=== PATIENT | female | born 1995 | race African-American/Black ===

== ENCOUNTER 2019-06-12 09:15 | Inpatient (IN) | payer BC ==
[2019-06-12] MEDS ORDERED: AMPICILLIN SODIUM 2 GM VIAL ONE (10:12)
[2019-06-12] MEDS ORDERED: AMPICILLIN - 2 GM in SODIUM CHLORIDE 100 ML IVPB ONE (10:30)
[2019-06-12 10:44] VITALS: BMI 32.2
[2019-06-12] MEDS ORDERED: ELECTROLYTE-148 SOLN 1,000 ML IV SCH (10:45)
[2019-06-12 11:27] LABS: BASO % 0.5 % (0-2.0); EOS % 0.8 % (0-4.5); HEMATOCRIT 34.5 % (32.4-45.2); HEMOGLOBIN 11.9 GM/dL (10.7-15.3); LYMPH % 22.1 % (8-40); MCH 33.2 pg (25.7-33.7); MCHC 34.6 g/dl (32.0-36.0); MONO % 6.1 % (3.8-10.2); NEUT % 70.5 % (42.8-82.8); PLATELET COUNT 170 K/MM3 (134-434); RBC 3.59 M/mm3 (3.60-5.2); RDW 13.9 % (11.6-15.6); WHITE BLOOD COUNT 6.3 K/mm3 (4.0-10.0)
[2019-06-12 11:38] LABS: INR 0.9 (0.83-1.09); PROTHROMBIN TIME (PATIENT) 10.6 SEC (9.7-13.0)
[2019-06-12 11:41] LABS: ACTIVATED PTT 26.6 SECONDS (25.2-36.5); BLOOD UREA NITROGEN 7.3 mg/dL (7-18); CALCIUM 9.2 mg/dL (8.5-10.1); CREATININE 0.6 mg/dL (0.55-1.3); POTASSIUM 4.2 mmol/L (3.5-5.1)
[2019-06-12] MEDS ORDERED: BUTORPHANOL TARTRATE 1 MG/ML VIAL IVPB ONE (13:04)
[2019-06-12] MEDS ORDERED: PROMETHAZINE HCL 25 MG/1 ML VIAL IVPB ONE (13:04)
[2019-06-12] MEDS ORDERED: DINOPROSTONE 10 MG VAGINAL SUPPOSITORY VG ONE (13:08)
--- NOTE | 2019-06-12 13:13 | HP ---
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: Alzheimer's, CVA, Dementia, Migraine, Multiple Sclerosis, Peripheral Neuropathy, Parkinson's, Seizure, Syncope, TIA, Vertigo, Other Cardiovascular: No: AFIB, Aneurysm, Aortic Insufficiency, Aortic Stenosis, CAD, CHF, Deep Vein Thrombosis, HTN, Hyperlipdemia, [place], Mitral Insufficiency, Mitral Stenosis, Murmur, Pulmonary Hypertension, Other Pulmonary: No: Asthma, Bronchitis, Cancer, COPD, O2 Dependent, Pneumonia, Previously Intubated, Pulmonary Embolus, Pulmonary Fibrosis, Sleep Apnea, Other Gastrointestinal: No: Ascites, Cancer, Constipation, Crohn's Disease, Diverticulitis, Diverticulosis, Esophageal Varices, Gastritis, GERD, GI Bleed, Hemorrhoids, Hiatal Hernia, Inflamatory Bowel Disease, Irritable Bowel Disease, Pancreatitis, Peptic Ulcer Disease, Ulcerative Colitis, Other Hepatobiliary: No: Cirrhosis, Cholelithiasis, Cholecystitis, Choledocholithiasis , Hepatitis A, Hepatitis B, Hepatitis C, Other Renal/: No: Renal Failure, Renal Inusuff, BPH, Cancer, Hematuria, Hemodialysis , Neurogenic Bladder, Renal Calculi, UTI, Other Reproductive: No: Ectopic , Endometriosis, Fibroids, PID, Polycystic Ovary Syndrome, Postmenopausal, Other ...: 1 ...Para: 0 ...Term: 0 ...: 0 ...Spon : 0 ...Induced : 0 ...Multiple Gestation: 0 ...LMP: 09/09/18 ... Weeks Gestation by Dates: 39.3 ...EDC by Dates: 06/16/19 ...EDC by Sono: 06/16/19 Heme/Onc: No: Anemia, B12 Deficiency, Bleeding Disorder, Cancer, Current Chemotherapy, Current Radiation Therapy, Hemochromatosis, Hypercoaguable State, Myeloproliferative Synd, Sickle Cell Disease, Sickle Cell Trait, Thrombocytopenia, Other Infectious Disease: No: AIDS, C-Diff, Herpes Zoster, HIV, MRSA, STD's, Tuberculosis, VREF, Other Psych: No: Addictions, Anxiety, Bipolar, Depression, Panic, Psychosis, Schizophrenia, Other Musculoskeletal: No: Bursitis, Chronic low back pain, Hemiparesis, Hemiplegia, Osteoarthritis, Paraplegia, Other Rheumatology: No: Fibromyalgia, Gout, Lupus, Rheumatoid Arthritis, Sarcoidosis, Vasculitis, Other ENT: No: Allergic Rhinitis, Sinusitis, Other Endocrine: No: Craig's Disease, [place]'s Disease, Diabetes Insipidus, Diabetes Mellitus, Hyperparathyroidism, Hyperthyroidism, Hypothyroidism, Osteopenia, SIADH, Other Dermatology: No: Basal Cell, Cellulitis, Eczema, Melanoma, Psoriasis, Squamous Cell, Other - Past Surgical History Past Surgical History: No: None, AAA Repair, AICD, Amputation, Appendectomy, Arthrosocopy, AV Fistula/Graft, Bariatric Surgery, Breast Biopsy, Bypass, CABG, Carotid Endarterectomy, Cataract Removal, Cholecystectomy, Colectomy, Colonoscopy, Colostomy, Craniotomy, , Cystectomy, Hernia Repair, Hysterectomy, Ileal Conduit, Ileosotomy, Joint Replacement, Kidney Transplant, Laminectomy, Liver Transplant, Mastectomy, Nephrectomy, Oopherectomy, Orchiectomy, Permanent Pacemaker, Prostatectomy, Splenectomy, Stent, Thoracotomy , TURP, Tonsillectomy, Tubal Ligation, Upper Endoscopy, Valve Replacement, Vasectomy, Vein Stripping/Ligation Hx Myomectomy: No Hx Transabdominal Cerclage: No - Advance Directives Advance Directives: Yes: Living Will - Smoking History Smoking history: Never smoked Have you smoked in the past 12 months: No - Alcohol/Substance Use Hx Alcohol Use: No History of Substance Use: reports: None - Social History Usual Living Arrangement: Yes: With Spouse Do you think of yourself as: Declined to answer ADL: Independent History of Recent Travel: No Home Medications - Allergies Allergies/Adverse Reactions: Allergies Allergy/AdvReac Type Severity Reaction Status Date / Time No Known Allergies Allergy Verified 06/12/19 09:49 - Home Medications Home Medications: Ambulatory Orders Pnv No.95/Ferrous Fum/Folic AC [ Vitamin Tablet] 1 each PO DAILY Family Medical History Family History: Denies Review of Systems - Review of Systems Constitutional: reports: No Symptoms Eyes: reports: No Symptoms HENT: reports: No Symptoms Neck: reports: No Symptoms Cardiovascular: reports: No Symptoms Respiratory: reports: No Symptoms Gastrointestinal: reports: No Symptoms Genitourinary: reports: No Symptoms Breasts: reports: No Symptoms Reported Musculoskeletal: reports: No Symptoms Integumentary: reports: No Symptoms Neurological: reports: No Symptoms Endocrine: reports: No Symptoms Hematology/Lymphatic: reports: No Symptoms Psychiatric: reports: No Symptoms Physical Exam - Maternity Vital Signs: Vital Signs Temperature 97.9 F 06/12/19 13:00 Pulse Rate 82 06/12/19 13:00 Respiratory Rate 18 06/12/19 13:00 Blood Pressure 120/62 06/12/19 13:00 O2 Sat by Pulse Oximetry (%) Constitutional: Yes: Well Nourished, No Distress, Calm Eyes: Yes: WNL, Conjunctiva Clear, EOM Intact HENT: Yes: WNL, Atraumatic, Normocephalic Neck: Yes: WNL, Supple, Trachea Midline Cardiovascular: Yes: WNL, Regular Rate and Rhythm Lungs: Clear to auscultation Breast(s): Yes: WNL - Abdominal Exam/OB Number of Fetuses: Single Presentation: Vertex Contractions: Yes Regularity: Irregular Intensity: Mild Monitor Mode: External Heart Rate Location: [facility] Category: I Accelerations: Uniform Decelerations: None - Vaginal Exam/OB Vaginal Bleediing: No Speculum Exam: No Dilatation (cm): 2 Effacement (%): 70 Amniotic Membrane Status: Ruptured Amniotic Fluid: Yes: Clear Presentation: Vertex/Position Station: -2 - Physical Exam Musculoskeletal: Yes: WNL Extremities: Yes: WNL Edema: Yes Edema: LUE: 1+, RUE: 1+, LLE: 1+, RLE: 1+ Integumentary: Yes: WNL Deep Tendon Reflex Grade: Normal +2 ...Motor Strength: WNL Psychiatric: Yes: WNL, Alert, Oriented - Labs Lab Results: CBC, BMP 06/12/19 10:57 06/12/19 10:57 Assessment/Plan for cervidil then pitocin, ampicillin given
[2019-06-12] MEDS ORDERED: FENTANYL/BUPIVACAINE/NS/PF - PCEA - 50 ML DISP.SYRIN EP ONE ×2 (13:41→13:44)
[2019-06-12] MEDS ORDERED: LIDO 2%/EPI 1:200000 PRESRVFRE (20 ML SDVIAL) ONE ×2 (13:45→16:14)
[2019-06-12] MEDS ORDERED: NALOXONE HCL 0.4 MG/ML VIAL IVPUSH PRN (14:09)
[2019-06-12] MEDS ORDERED: AMPICILLIN SODIUM 1 GM VIAL ONE (14:12)
[2019-06-12] MEDS: AMPICILLIN - 1 GM in SODIUM CHLORIDE 100 ML IVPB SCH ×2 (14:15→19:36)
[2019-06-12] MEDS ORDERED: FENTANYL/BUPIVACAINE/NS/PF - PCEA - 50 ML DISP.SYRIN EP SCH (14:15)
[2019-06-12] MEDS ORDERED: morphine SULFATE/PF 0.5 MG/ML (2cc Syringe - QUVA) ONE (15:40)
[2019-06-12] MEDS ORDERED: LIDOCAINE HCL/PF 2% SDV 5ML VIAL ONE (16:08)
[2019-06-12] MEDS ORDERED: PROPOFOL 20 ML ONE (16:21)
[2019-06-12] MEDS ORDERED: SUCCINYLCHOLINE CHLORIDE 200 MG/10 ML SYRINGE ONE (16:23)
[2019-06-12] MEDS ORDERED: OXYTOCIN 10 UNITS/ML VIAL ONE ×2 (16:32→17:05)
[2019-06-12] MEDS ORDERED: MIDAZOLAM HCL 2 MG/2 ML SINGLE DOSE VIAL ONE (17:14)
[2019-06-12] MEDS ORDERED: OXYTOCIN 20 UNITS in 0.9% NS 20 UNIT/1,000 ML INFUS.BAG IV ONE (17:35)
--- NOTE | 2019-06-12 17:42 | CONSULT ---
Consult Consult Specialty:: Pulm/CCM Reason for Consultation:: post op resp failure - History of Present Illness History of Present Illness: 24 yo woman with no other past medical history who underwent c/b high spinal w/ resp compromise requiring general anesthesia. The was uncomplicated. Post op pt w/ residual resp weakness and unable to be weaned from mechanical ventilation and transferred to ICU for recoverey and vent weaning. 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: Alzheimer's, CVA, Dementia, Migraine, Multiple Sclerosis, Peripheral Neuropathy, Parkinson's, Seizure, Syncope, TIA, Vertigo, Other Cardio/Vascular: No: AFIB, Aneurysm, Aortic Insufficiency, Aortic Stenosis, CAD , CHF, Deep Vein Thrombosis, HTN, Hyperlipdemia, [place], Mitral Insufficiency, Mitral Stenosis, Murmur, Pulmonary Hypertension, Other Pulmonary: No: Asthma, Bronchitis, Cancer, COPD, O2 Dependent, Pneumonia, Previously Intubated, Pulmonary Embolus, Pulmonary Fibrosis, Sleep Apnea, Other Gastrointestinal: No: Ascites, Cancer, Constipation, Crohn's Disease, Diverticulitis, Diverticulosis, Esophageal Varices, Gastritis, GERD, GI Bleed, Hemorrhoids, Hiatal Hernia, Inflamatory Bowel Disease, Irritable Bowel Disease, Pancreatitis, Peptic Ulcer Disease, Ulcerative Colitis, Other Hepatobiliary: No: Cirrhosis, Cholelithiasis, Cholecystitis, Choledocholithiasis , Hepatitis A, Hepatitis B, Hepatitis C, Other Renal/: No: Renal Failure, Renal Inusuff, BPH, Cancer, Hematuria, Hemodialysis , Neurogenic Bladder, Renal Calculi, UTI, Other Infectious Disease: No: AIDS, C-Diff, Herpes Zoster, HIV, MRSA, STD's, Tuberculosis, VREF, Other Psych: No: Addictions, Anxiety, Bipolar, Depression, Panic, Psychosis, Schizophrenia, Other Musculoskeletal: No: Bursitis, Chronic low back pain, Hemiparesis, Hemiplegia, Osteoarthritis, Paraplegia, Other Rheumatology: No: Fibromyalgia, Gout, Lupus, Rheumatoid Arthritis, Sarcoidosis, Vasculitis, Other ENT: No: Allergic Rhinitis, Sinusitis, Other Endocrine: No: [place]'s Disease, [place]'s Disease, Diabetes Insipidus, Diabetes Mellitus, Hyperparathyroidism, Hyperthyroidism, Hypothyroidism, Osteopenia, SIADH, Other Dermatology: No: Basal Cell, Cellulitis, Eczema, Melanoma, Psoriasis, Squamous Cell, Other - Past Surgical History Past Surgical History: No: None, AAA Repair, AICD, Amputation, Appendectomy, Arthrosocopy, AV Fistula/Graft, Bariatric Surgery, Breast Biopsy, Bypass, CABG, Carotid Endarterectomy, Cataract Removal, Cholecystectomy, Colectomy, Colonoscopy, Colostomy, Craniotomy, , Cystectomy, Hernia Repair, Hysterectomy, Ileal Conduit, Ileosotomy, Joint Replacement, Kidney Transplant, Laminectomy, Liver Transplant, Mastectomy, Nephrectomy, Oopherectomy, Orchiectomy, Permanent Pacemaker, Prostatectomy, Splenectomy, Stent, Thoracotomy , TURP, Tonsillectomy, Tubal Ligation, Upper Endoscopy, Valve Replacement, Vasectomy, Vein Stripping/Ligation - Alcohol/Substance Use Hx Alcohol Use: No History of Substance Use: reports: None - Smoking History Smoking history: Never smoked Have you smoked in the past 12 months: No - Social History ADL: Independent History of Recent Travel: No Home Medications - Allergies Allergies/Adverse Reactions: Allergies Allergy/AdvReac Type Severity Reaction Status Date / Time No Known Allergies Allergy Verified 06/12/19 09:49 - Home Medications Home Medications: Ambulatory Orders Pnv No.95/Ferrous Fum/Folic AC [ Vitamin Tablet] 1 each PO DAILY Family Medical History Family History: Unable to Obtain Review of Systems Unable to obtain ROS, reason: intubated Physical Exam Vital Signs: Vital Signs Temperature 97.9 F 06/12/19 14:00 Pulse Rate 98 H 06/12/19 15:00 Respiratory Rate 20 06/12/19 15:00 Blood Pressure 105/56 L 06/12/19 15:00 O2 Sat by Pulse Oximetry (%) 100 06/12/19 15:00 Constitutional: Yes: Well Nourished, No Distress Eyes: Yes: PERRL HENT: Yes: Normocephalic Neck: Yes: Trachea Midline Cardiovascular: Yes: Regular Rate and Rhythm, S1, S2 Respiratory: Yes: CTA Bilaterally, Mechanically Ventilated Gastrointestinal: Yes: Normal Bowel Sounds Renal/: Yes: Other ( c/d/i) Extremities: Yes: WNL Edema: No Neurological: Yes: Other (sedated RASS -3) Labs: CBC, BMP 06/12/19 10:57 06/12/19 10:57 Problem List - Problems (1) Respiratory failure requiring intubation Code(s): J96.90 - RESPIRATORY FAILURE, UNSP, UNSP W HYPOXIA OR HYPERCAPNIA Assessment/Plan 24 yo woman w/ no PMH s/p c/b high spinal w/ post op respiratory failure being transferred to ICU for weaning from mechanical ventilation -monitor resp status and extubate once passes SBT -can transfer to L&D once extubated -all other care per primary team Pilar ACNP Pulm/CCM CCT: 35m
[2019-06-12] MEDS ORDERED: CITRIC ACID/SODIUM CITRATE 30 ML UNIT-DOSE CUP PO ONE (17:59)
[2019-06-12] MEDS ORDERED: SENNOSIDES/DOCUSATE COMBO (SENNA PLUS) TABLET (UD) PO PRN (18:00)
[2019-06-12] MEDS ORDERED: oxyCODONE HCL 5 MG TABLET PO PRN (18:00)
[2019-06-12] MEDS ORDERED: METHYLERGONOVINE MALEATE 0.2 MG/1 ML AMP IM PRN (18:00)
[2019-06-12] MEDS ORDERED: IBUPROFEN 800 MG/8 ML IJ IVPB PRN (18:00)
--- NOTE | 2019-06-12 18:04 | PN ---
Progress Note (short form) - Note Progress Note: 3 pm, recurrent deep variabl decel, cx is still 4 cm, caput, -2, -1, 70%, will consider c s soon
--- NOTE | 2019-06-12 18:07 | OP ---
Operative Note - Note: Operative Date: 06/12/19 Pre-Operative Diagnosis: non reassuring fht Operation: primary lt c s Findings: can x 1 tight Post-Operative Diagnosis: Same as Pre-op Surgeon: Will Oates (high spinal, difficult breathing during c s , intubated ) [employer] Technician: Sam Rodriguez Anesthesiologist/SCOOTER MECHANIC: Shalom Carreno Anesthesia: Spinal Estimated Blood Loss (mls): 800 Operative Report Dictated: Yes
[2019-06-12] MEDS ORDERED: HYDROmorphone *PCA* 10MG/50ML DISP.SYRIN PCA SCH (19:45)
[2019-06-12] MEDS ORDERED: PCA PUMP KEY 1 EACH EACH ONE (19:55)
--- NOTE | 2019-06-12 20:09 | OP ---
DATE OF OPERATION: 06/12/2019 PREOPERATIVE DIAGNOSIS: Non-reassuring heart rate tracing. POSTOPERATIVE DIAGNOSIS: Cord around the neck x1, tight; non-reassuring heart rate tracing; high spinal with difficult breathing during the section. PROCEDURE: Primary low-transverse section. SURGEON: Will Oates MD SLATE SPLITTING SUPERVISOR: DOMONIQUE Hi ANESTHESIA: Spinal anesthesia and epidural anesthesia and intubation with general anesthesia by AILIN Ramirez. INDICATION: This is a 24-year-old female patient, at 39 weeks 3 days right now, came in to the hospital with spontaneous rupture of membranes about 7 o'clock this morning. Patient came in to the hospital. Patient had a cervix dilated 2 cm, and the patient was started on antibiotic for the group-B streptococcus status, and patient was waiting for contraction. Patient had a minor contraction so patient received Cervidil at around 1 o'clock, and after the Cervidil, patient's contractions became stronger and patient could not tolerate her labor, and the patient asked for pain medication. Patient at this time was 3 cm and 60%, -2, so with the patient's pain level at 8/10 half an hour after the Cervidil, the patient was given epidural. Epidural was working, patient was comfortable. About half an hour later, patient started having recurrent, deep, variable decelerations, and cervix still about 3 to 4 cm, 70%, -2, and the patient was repositioned and oxygen was given; however, patient still had deceleration and the patient also had a fever and tachycardia, and at this time, a decision was made to bring the patient for section. Patient had an epidural already, so patient was taken to the OR; however, patient epidural was removed and patient was receiving spinal again; however, spinal could not be obtained. The doctor tried to put an epidural at this time. Epidural was in and patient was comfortable with adequate anesthesia and no pain. Then we proceeded with section. Patient's abdomen and pelvis was prepped and draped in the usual sterile manner after patient was placed on the operating table in supine position. A Pfannenstiel incision was made through skin and subcutaneous tissue until the fascia was nicked in the midline. The fascia was extended bilaterally intraperitoneal cavity was entered; however, at this time, patient complained she could not breathe and patient insisted she wanted to sit up and patient could not breathe, and at this time Anesthesia noticed that patient had difficulty breathing and patient was intubated by Anesthesia at this point; however, at this time I was just about to make the uterine incision. Incision was made at this time, and the baby was delivered quickly and baby was handed over to applicator sprayer after umbilical cord doubly clamped and cut. Cord blood gas was obtained. Placenta was removed. Uterus was closed in a single layer, 1st layer interlocking Vicryl sutures. Good hemostasis. Both gutters were cleaned. Both ovaries, fallopian tubes, and uterus were within normal limits. There was PCO appearance of both ovaries. Other than that, no complication. Peritoneum was closed. Fascia was closed. Skin was closed. Draining clear urine. Blood loss about 800 mL. The baby had Apgars 9 and 9. No complication; however, patient had difficulty breathing. Patient still intubated; Anesthesia, Dr. Carreno, wanted to be safe. Patient did receive a high spinal. Dr. Carreno wanted patient to remain intubated, wait until the epidural anesthesia wears off. Patient will be attempted to be extubated after 2 or 3 hours. So at this time, decision was made to transfer the patient to ICU for monitoring, for ventilation. Other than that, no complication from the section or baby or delivery process except for the difficulty breathing from the high spinal anesthesia. Patient was still intubated and transferred to the ICU in stable condition. MD LINDSEY TYSON/[id number]
--- NOTE | 2019-06-13 07:09 | PN ---
Post Progress Note Post Day: 1 Type of Delivery: Primary C/S Vital Signs: Vital Signs Temperature 98 F 06/13/19 05:53 Pulse Rate 86 06/13/19 05:53 Respiratory Rate 18 06/13/19 05:53 Blood Pressure 131/78 06/13/19 05:53 O2 Sat by Pulse Oximetry (%) 98 06/13/19 00:30 Breast Exam: Yes: Soft Uterus: Yes: Fundus Firm, Fundus below umbilicus Incision: Yes: Dressing dry and intact, Sutures intact Abdomen/GI: Yes: Abdomen soft, Passing flatus, Tolerating PO Lochia: Yes: Serosa Lochia, amount: Small Extremities: Yes: Calves non-tender Perineum: Yes: Intact Activity: Ambulating - Labs Labs: CBC WBC 6.3 K/mm3 (4.0-10.0) 06/12/19 10:57 RBC 3.59 M/mm3 (3.60-5.2) L 06/12/19 10:57 Hgb 11.9 GM/dL (10.7-15.3) 06/12/19 10:57 Hct 34.5 % (32.4-45.2) 06/12/19 10:57 MCV 96.0 fl (80-96) 06/12/19 10:57 MCH 33.2 pg (25.7-33.7) 06/12/19 10:57 MCHC 34.6 g/dl (32.0-36.0) 06/12/19 10:57 RDW 13.9 % (11.6-15.6) 06/12/19 10:57 Plt Count 170 K/MM3 (134-434) 06/12/19 10:57 MPV 9.0 fl (7.5-11.1) 06/12/19 10:57 Absolute Neuts (auto) 4.5 K/mm3 (1.5-8.0) 06/12/19 10:57 Neutrophils % 70.5 % (42.8-82.8) 06/12/19 10:57 Lymphocytes % 22.1 % (8-40) 06/12/19 10:57 Monocytes % 6.1 % (3.8-10.2) 06/12/19 10:57 Eosinophils % 0.8 % (0-4.5) 06/12/19 10:57 Basophils % 0.5 % (0-2.0) 06/12/19 10:57 Nucleated RBC % 0 % (0-0) 06/12/19 10:57
[2019-06-13 07:59] LABS: BASO % 0.5 % (0-2.0); EOS % 0.3 % (0-4.5); HEMATOCRIT 30.6 % (32.4-45.2); HEMOGLOBIN 10.5 GM/dL (10.7-15.3); LYMPH % 12.2 % (8-40); MCHC 34.4 g/dl (32.0-36.0); MEAN PLT VOLUME 9.3 fl (7.5-11.1); MONO % 6.6 % (3.8-10.2); NEUT % 80.4 % (42.8-82.8); PLATELET COUNT 157 K/MM3 (134-434); RBC 3.19 M/mm3 (3.60-5.2); RDW 14.1 % (11.6-15.6); WHITE BLOOD COUNT 11.7 K/mm3 (4.0-10.0)
[2019-06-13] MEDS: ENOXAPARIN NA (PORCINE) 40 MG/0.4 ML DISP.SYRIN SQ SCH (10:13)
[2019-06-13] MEDS ORDERED: PCA PUMP KEY 1 EACH EACH ONE (11:10)
[2019-06-13] MEDS: IBUPROFEN 600 MG TABLET (FP) PO PRN ×2 (11:51→20:26)
[2019-06-13] MEDS: oxyCODONE HCL 5 MG TABLET PO PRN ×2 (11:52→20:27)
[2019-06-13] MEDS: SIMETHICONE 80 MG TAB.CHEW (FP) PO PRN ×2 (11:53→20:26)
--- NOTE | 2019-06-13 12:11 | PN ---
Progress Note (short form) - Note Progress Note: Anesthesia postop note 24 y/o F s/p GA for section, s/p epidural for labor and "high spinal" intraop POD#1, vss, aaox3, no complaints, sensory motor intact distally. No anesthesia complications except for prolonged intubation until motor function regained postop.
[2019-06-13 12:53] LABS: POC NITRAZINE POS
[2019-06-13] MEDS ORDERED: BISACODYL 10 MG SUPP.RECT RC PRN (18:00)
[2019-06-14] MEDS: oxyCODONE HCL 5 MG TABLET PO PRN ×5 (02:04→23:46)
[2019-06-14] MEDS: IBUPROFEN 600 MG TABLET (FP) PO PRN ×5 (02:05→23:46)
[2019-06-14] MEDS: SIMETHICONE 80 MG TAB.CHEW (FP) PO PRN ×5 (02:05→23:46)
[2019-06-14] MEDS: ENOXAPARIN NA (PORCINE) 40 MG/0.4 ML DISP.SYRIN SQ SCH (09:11)
--- NOTE | 2019-06-14 17:01 | PATH ---
Surgical Pathology Report Patient Name: ARELY MARION Med. Rec. #: [id number] /Age/Gender: 1995 (Age: 24) / F Account: [id number] Location: [facility] OBS/BIOLOGICAL SCIENTIST Taken: 06/12/2019 Received: 06/13/2019 Reported: 06/14/2019 Physicians: Will Oates MD Specimen(s) Received PLACENTA Clinical History , 39.3 weeks, nonreassuring FHR Final Diagnosis PLACENTA, SECTION: 449 G THIRD TRIMESTER PLACENTA, TRIVASCULAR UMBILICAL CORD WITH MEMBRANOUS INSERTION, AND UNREMARKABLE PLACENTAL MEMBRANES. Electronically Signed Luna Esqueda M.D. Gross Description The specimen is received fresh labeled placenta and is a 449 gram, 19 x 17 x 1.5 cm. placenta with attached membranes and umbilical cord. The attached membranes are clear and translucent and insert eccentrically. The umbilical cord measures 40 cm. in length and averages 2 cm. in diameter. The cord inserts membranously. No true knots or strictures are identified. Cut surface of the umbilical cord reveals 3 vessels. The surface is bull-blue with minimal fibrin deposition and appropriate caliber vessels. The maternal surface is red-brown with focal defects. Sectioning reveals red-brown, spongy parenchyma. No lesions are identified. Supervisor Of Instruction sections are submitted in three cassettes as follows: 1- membrane rolls and umbilical cord; 2-3- full thickness sections of placenta. MLSZ/06/13/2019 sanml/06/13/2019
--- NOTE | 2019-06-14 20:32 | PN ---
Post Progress Note Post Day: 2 Type of Delivery: Primary C/S Vital Signs: Vital Signs Temperature 98.5 F 06/14/19 08:00 Pulse Rate 90 06/14/19 08:00 Respiratory Rate 18 06/14/19 08:00 Blood Pressure 137/66 06/14/19 08:00 O2 Sat by Pulse Oximetry (%) 98 06/13/19 00:30 Breast Exam: Yes: Soft Uterus: Yes: Fundus Firm, Fundus below umbilicus Incision: Yes: Dressing dry and intact, Sutures intact Abdomen/GI: Yes: Abdomen soft, Passing flatus, Tolerating PO Lochia: Yes: Serosa Lochia, amount: Small Extremities: Yes: Calves non-tender Perineum: Yes: Intact Activity: Ambulating - Labs Labs: CBC WBC 11.7 K/mm3 (4.0-10.0) H 06/13/19 06:15 RBC 3.19 M/mm3 (3.60-5.2) L 06/13/19 06:15 Hgb 10.5 GM/dL (10.7-15.3) L 06/13/19 06:15 Hct 30.6 % (32.4-45.2) L 06/13/19 06:15 MCV 96.0 fl (80-96) 06/13/19 06:15 MCH 33.0 pg (25.7-33.7) 06/13/19 06:15 MCHC 34.4 g/dl (32.0-36.0) 06/13/19 06:15 RDW 14.1 % (11.6-15.6) 06/13/19 06:15 Plt Count 157 K/MM3 (134-434) 06/13/19 06:15 MPV 9.3 fl (7.5-11.1) 06/13/19 06:15 Absolute Neuts (auto) 9.4 K/mm3 (1.5-8.0) H 06/13/19 06:15 Neutrophils % 80.4 % (42.8-82.8) 06/13/19 06:15 Lymphocytes % 12.2 % (8-40) D 06/13/19 06:15 Monocytes % 6.6 % (3.8-10.2) 06/13/19 06:15 Eosinophils % 0.3 % (0-4.5) 06/13/19 06:15 Basophils % 0.5 % (0-2.0) 06/13/19 06:15 Nucleated RBC % 0 % (0-0) 06/13/19 06:15
[2019-06-15] MEDS: SIMETHICONE 80 MG TAB.CHEW (FP) PO PRN ×4 (04:58→20:15)
[2019-06-15] MEDS: oxyCODONE HCL 5 MG TABLET PO PRN ×3 (04:59→15:20)
[2019-06-15] MEDS: IBUPROFEN 600 MG TABLET (FP) PO PRN ×4 (05:00→20:15)
[2019-06-15 08:43] LABS: BASO % 0.4 % (0-2.0); EOS % 1.8 % (0-4.5); LYMPH % 21.9 % (8-40); MCH 32.6 pg (25.7-33.7); MCHC 33.5 g/dl (32.0-36.0); MEAN CELL VOLUME 97.4 fl (80-96); MEAN PLT VOLUME 8.9 fl (7.5-11.1); MONO % 4.7 % (3.8-10.2); NEUT % 71.2 % (42.8-82.8); PLATELET COUNT 194 K/MM3 (134-434); RBC 3.08 M/mm3 (3.60-5.2); RDW 14.1 % (11.6-15.6); WHITE BLOOD COUNT 10.3 K/mm3 (4.0-10.0)
[2019-06-15] MEDS: ENOXAPARIN NA (PORCINE) 40 MG/0.4 ML DISP.SYRIN SQ SCH (09:42)
[2019-06-15] MEDS: ACETAMINOPHEN 325 MG TABLET (FP) PO PRN (20:16)
--- NOTE | 2019-06-15 20:48 | PN ---
Post Progress Note Post Day: 3 Type of Delivery: Primary C/S Vital Signs: Vital Signs Temperature 98.0 F 06/15/19 08:21 Pulse Rate 88 06/15/19 08:21 Respiratory Rate 18 06/15/19 15:00 Blood Pressure 131/91 06/15/19 16:00 O2 Sat by Pulse Oximetry (%) 98 06/13/19 00:30 Breast Exam: Yes: Soft Uterus: Yes: Fundus Firm, Fundus below umbilicus, Non-tender Incision: Yes: Dressing dry and intact, Sutures intact Abdomen/GI: Yes: Abdomen soft, Passing flatus, Tolerating PO Lochia: Yes: Serosa Lochia, amount: Small Extremities: Yes: Calves non-tender Perineum: Yes: Intact Activity: Ambulating - Labs Labs: CBC WBC 10.3 K/mm3 (4.0-10.0) H 06/15/19 07:26 RBC 3.08 M/mm3 (3.60-5.2) L 06/15/19 07:26 Hgb 10.0 GM/dL (10.7-15.3) L 06/15/19 07:26 Hct 30.0 % (32.4-45.2) L 06/15/19 07:26 MCV 97.4 fl (80-96) H 06/15/19 07:26 MCH 32.6 pg (25.7-33.7) 06/15/19 07:26 MCHC 33.5 g/dl (32.0-36.0) 06/15/19 07:26 RDW 14.1 % (11.6-15.6) 06/15/19 07:26 Plt Count 194 K/MM3 (134-434) D 06/15/19 07:26 MPV 8.9 fl (7.5-11.1) 06/15/19 07:26 Absolute Neuts (auto) 7.4 K/mm3 (1.5-8.0) 06/15/19 07:26 Neutrophils % 71.2 % (42.8-82.8) 06/15/19 07:26 Lymphocytes % 21.9 % (8-40) D 06/15/19 07:26 Monocytes % 4.7 % (3.8-10.2) 06/15/19 07:26 Eosinophils % 1.8 % (0-4.5) D 06/15/19 07:26 Basophils % 0.4 % (0-2.0) 06/15/19 07:26 Nucleated RBC % 0 % (0-0) 06/15/19 07:26 Assessment/Plan doing well, bp wnl, dc pt home tomorrow
--- NOTE | 2019-06-15 20:51 | DS ---
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 Vital Signs: Vital Signs Temperature 98.0 F 06/15/19 08:21 Pulse Rate 88 06/15/19 08:21 Respiratory Rate 18 06/15/19 15:00 Blood Pressure 131/91 06/15/19 16:00 O2 Sat by Pulse Oximetry (%) 98 06/13/19 00:30 Constitutional: Yes: Well Nourished, No Distress, Calm Eyes: Yes: WNL, Conjunctiva Clear, EOM Intact HENT: Yes: WNL, Atraumatic, Normocephalic Neck: Yes: WNL, Supple, Trachea Midline Cardiovascular: Yes: WNL, Regular Rate and Rhythm Respiratory: Yes: WNL, Regular, CTA Bilaterally Gastrointestinal: Yes: WNL, Normal Bowel Sounds, Soft ...Rectal Exam: Yes: WNL Renal/: Yes: WNL Pelvis: Yes: WNL External Genitalia: Yes: Normal Internal Exam Deferred: Yes Vaginal Exam: Yes: Normal Cervix: Yes: Normal Uterus: Yes: Normal Adnexa: Normal: Bilateral ....Post : Yes: Uterus firm, Uterus non-tender Breast(s): Yes: WNL Musculoskeletal: Yes: WNL Extremities: Yes: WNL Edema: Yes Edema: LUE: 1+, RUE: 1+, LLE: 1+, RLE: 1+ Integumentary: Yes: WNL Wound/Incision: Yes: Clean/Dry, Well Approximated Neurological: Yes: WNL, Alert, Oriented ...Motor Strength: WNL Psychiatric: Yes: WNL, Alert, Oriented Labs: CBC, BMP 06/15/19 07:26 06/12/19 10:57 Delivery - Delivery Type of Anesthesia: Epidural, General Episiotomy/Laceration: None EBL (cc): 800 Delivery, Single - Stages of Labor Date 1st Stage Initiatied: 06/12/19 Time 1st Stage Initiated: 15:00 Date of Delivery: 06/12/19 Time of Delivery: 16:25 Time Placenta Delivered: 16:26 - Condition of College Service Officer/Body Wirer Present: Yes Name: Shonna Godwin Gender: Male Weight: 3.572 kg Position: Right, OT Total Hours ROM (Hrs/Mins): 8 hours and 35 minutes - 1 Minute Total Score: 9 5 Minutes Total Score: 9 - Valders Feeding Plan Initial Plan: Exclusive throughout hospitalization Discharge Summary Problems reviewed: Yes Reason For Visit: LABOR ADMIT Current Active Problems Respiratory failure requiring intubation (Acute) Procedures: Principal: primary lt c s Hospital Course: uneventful Health Concerns: none Plan of Treatment: ambulating as much as possible Goals: return to work in 8 weeks Condition: Good - Instructions Diet, Activity, Other Instructions: regular Disposition: HOME - Home Medications Comprehensive Discharge Medication List: Ambulatory Orders Pnv No.95/Ferrous Fum/Folic AC [ Vitamin Tablet] 1 each PO DAILY Prescription Drug Monitoring Program (I-STOP) results: I-STOP reviewed and no issues identified
[2019-06-16] MEDS: IBUPROFEN 600 MG TABLET (FP) PO PRN (00:15)
[2019-06-16] MEDS: ACETAMINOPHEN 325 MG TABLET (FP) PO PRN (00:15)
[2019-06-16] MEDS ORDERED: ACETAMINOPHEN/CAFFEINE/BUTALBITAL 1 TAB PO PRN (08:32)
--- NOTE | 2019-06-16 08:35 | PN ---
Post Progress Note Post Day: 4 Type of Delivery: Primary C/S Vital Signs: Vital Signs Temperature 98.5 F 06/15/19 21:00 Pulse Rate 88 06/15/19 21:00 Respiratory Rate 20 06/15/19 21:00 Blood Pressure 137/88 06/15/19 21:00 O2 Sat by Pulse Oximetry (%) 98 06/13/19 00:30 Breast Exam: Yes: Soft Uterus: Yes: Fundus Firm, Fundus below umbilicus Incision: Yes: Dressing dry and intact, Sutures intact Abdomen/GI: Yes: Abdomen soft, Passing flatus, Tolerating PO Lochia: Yes: Serosa Lochia, amount: Small Extremities: Yes: Calves non-tender Perineum: Yes: Intact Activity: Ambulating (headache, will see anesthesia, fiorcet given ) - Labs Labs: CBC WBC 10.3 K/mm3 (4.0-10.0) H 06/15/19 07:26 RBC 3.08 M/mm3 (3.60-5.2) L 06/15/19 07:26 Hgb 10.0 GM/dL (10.7-15.3) L 06/15/19 07:26 Hct 30.0 % (32.4-45.2) L 06/15/19 07:26 MCV 97.4 fl (80-96) H 06/15/19 07:26 MCH 32.6 pg (25.7-33.7) 06/15/19 07:26 MCHC 33.5 g/dl (32.0-36.0) 06/15/19 07:26 RDW 14.1 % (11.6-15.6) 06/15/19 07:26 Plt Count 194 K/MM3 (134-434) D 06/15/19 07:26 MPV 8.9 fl (7.5-11.1) 06/15/19 07:26 Absolute Neuts (auto) 7.4 K/mm3 (1.5-8.0) 06/15/19 07:26 Neutrophils % 71.2 % (42.8-82.8) 06/15/19 07:26 Lymphocytes % 21.9 % (8-40) D 06/15/19 07:26 Monocytes % 4.7 % (3.8-10.2) 06/15/19 07:26 Eosinophils % 1.8 % (0-4.5) D 06/15/19 07:26 Basophils % 0.4 % (0-2.0) 06/15/19 07:26 Nucleated RBC % 0 % (0-0) 06/15/19 07:26
[2019-06-16 08:53] VITALS: BP 123/56; PULSE 83; TEMP 97.6
[2019-06-16] MEDS: ENOXAPARIN NA (PORCINE) 40 MG/0.4 ML DISP.SYRIN SQ SCH (09:18)
== END 2019-06-16 12:00 | disposition home or self-care (01) | DRG 786 ==
LOC: JDEL 09:15 → JLDR 09:40 → JICU 17:42 → J3W 18:58
PROVIDERS: ADMIT Obstetrics & Gynecology; ATTEND Obstetrics & Gynecology
PROC: 10D00Z1 Extraction of Products of Conception, Low, Open Approach (ICD-10-PCS; principal; 2019-06-12)
PROC: 5A1935Z Respiratory Ventilation, Less than 24 Consecutive Hours (ICD-10-PCS; 2019-06-12)
PROC: 0BH17EZ Insertion of Endotracheal Airway into Trachea, Via Natural or Artificial Opening (ICD-10-PCS; 2019-06-12)
PROC: 3E0P7VZ Introduction of Hormone into Female Reproductive, Via Natural or Artificial Opening (ICD-10-PCS; 2019-06-12)
DX: O36.8330 Maternal care for abnormalities of the fetal heart rate or rhythm, third trimester, not applicable or unspecified (principal); J95.821 Acute postprocedural respiratory failure; O99.52 Diseases of the respiratory system complicating childbirth; Y83.9 Surgical procedure, unspecified as the cause of abnormal reaction of the patient, or of later complication, without mention of misadventure at the time of the procedure; O69.1XX0 Labor and delivery complicated by cord around neck, with compression, not applicable or unspecified; Z3A.39 39 weeks gestation of pregnancy; Z37.0 Single live birth
CPT/HCPCS: 36415; 80048; 83986-QW; 85025; 85610; 85730; 86593; 86850; 86900; 86901; 87389; 88307-TC; 94002